=== PATIENT | male | born 1980 | race African-American/Black ===

== ENCOUNTER 2017-11-23 20:30 | Outpatient (CLI) | payer OTHER | END 2017-11-23 20:32 | disposition short-term general hospital (02) | LOC: AMB 20:30 | DX: S00.03XA Contusion of scalp, initial encounter (principal); V49.9XXA Car occupant (driver) (passenger) injured in unspecified traffic accident, initial encounter; Y93.89 Activity, other specified; Y92.89 Other specified places as the place of occurrence of the external cause; Y99.8 Other external cause status | CPT/HCPCS: A0425; A0427 ==

== ENCOUNTER 2017-11-23 20:44 | Emergency (ER) | payer OTHER ==
[~2017-11-23] VITALS: Ht 170.2 cm; Wt 72.6 kg
[2017-11-23 21:12] LABS: PLATELET COUNT 321 K/uL (142-355)
[2017-11-23 21:34] LABS: POTASSIUM 3.1 mmol/L (3.6-5.2)
[2017-11-23 22:48] VITALS: BP 120/72; TEMP 98.6
== END 2017-11-23 22:48 | disposition short-term general hospital (02) ==
LOC: ED 20:44
DX: S02.0XXA Fracture of vault of skull, initial encounter for closed fracture (principal); V47.0XXA Car driver injured in collision with fixed or stationary object in nontraffic accident, initial encounter
CPT/HCPCS: 80053; 80320; 85027; 96361; 96365; 96374; 96375; 99285; J2270

== ENCOUNTER 2017-11-23 22:53 | Outpatient (CLI) | payer OTHER | END 2017-11-24 00:14 | disposition short-term general hospital (02) | LOC: AMB 22:53 | DX: S02.0XXA Fracture of vault of skull, initial encounter for closed fracture (principal); V47.0XXA Car driver injured in collision with fixed or stationary object in nontraffic accident, initial encounter | CPT/HCPCS: A0425; A0427 ==